=== PATIENT | female | born 1980 | race Caucasian/White ===

== ENCOUNTER → 2016-11-21 | Outpatient (CLI) | payer BC ==
[~2016-11-21] MED LIST: FERR1TAB36 PO; OXYC-360 PO; TAB-TAB PO; VITA10007 PO
== END ==
LOC: CPRE 09:26
PROVIDERS: ATTEND Obstetrics & Gynecology
DX: Z01.812 Encounter for preprocedural laboratory examination (principal); D21.9 Benign neoplasm of connective and other soft tissue, unspecified

== ENCOUNTER 2016-11-26 06:15 | Observation (INO) | payer BC ==
[~2016-11-26] VITALS: Ht 154.9 cm; Wt 50.4 kg
[~2016-11-26 06:15] MED LIST changes: -OXYC-360 PO; -TAB-TAB PO
[2016-11-26] MEDS ORDERED: INSULIN HUMAN REGULAR 1,000 UNITS/10 ML VIAL SQ PRN (06:45)
[2016-11-26] MEDS ORDERED: METOPROLOL TARTRATE 25 MG TAB PO PRN (06:45)
[2016-11-26] MEDS ORDERED: ceFAZolin 1,000 MG/NS 100 ML IV SCH ×2 (06:45)
[2016-11-26] MEDS ORDERED: ONDANSETRON HCL 4 MG/2 ML VIAL IV PUSH SCH (06:45)
[2016-11-26 06:55] VITALS: BP 114/76; PULSE 88; RESP 16; TEMP 96.7; O2SAT 100
[2016-11-26] MEDS ORDERED: MIDAZOLAM HCL 2 MG/2 ML VIAL IV SCH (07:00)
[2016-11-26] MEDS ORDERED: METHYLENE BLUE 10 MG/ML VIAL ONE (07:21)
[2016-11-26] MEDS ORDERED: VASOPRESSIN INJ 20 UNITS/ML VIAL ONE (07:22)
[2016-11-26] MEDS ORDERED: SODIUM CHLOR 0.9% 250 ML INJ 250 ML ONE (07:22)
[2016-11-26] MEDS ORDERED: HYDROmorphone HCL PF 2 MG/ML VIAL ONE (07:24)
[2016-11-26] MEDS ORDERED: MIDAZOLAM HCL 5 MG/5 ML VIAL ONE (07:24)
[2016-11-26] MEDS ORDERED: fentaNYL CITRATE 250 MCG/5 ML AMP ONE (07:24)
[2016-11-26] MEDS ORDERED: ACETAMINOPHEN 1000 MG/100 ML VIAL IV ONE (07:26)
[2016-11-26] MEDS ORDERED: FAMOTIDINE 20 MG/2 ML VIAL ONE (07:26)
[2016-11-26] MEDS ORDERED: APREPITANT 40 MG CAP ONE (07:32)
[2016-11-26] MEDS ORDERED: LACTATED RINGER'S 1000 ML IV SCH (08:00)
[2016-11-26] MEDS ORDERED: SODIUM CHLORID 0.9% 500 ML IV SCH (08:00)
[2016-11-26] MEDS ORDERED: PROPOFOL 200 MG/20 ML AMP IV ONE (09:32)
[2016-11-26] MEDS ORDERED: LACTATED RINGER'S 1000 ML INJ 3,000 ML IV ONE (09:32)
[2016-11-26] MEDS ORDERED: ONDANSETRON HCL 4 MG/2 ML VIAL IV PUSH ONE (09:32)
[2016-11-26] MEDS ORDERED: NEOSTIGMINE 3 MG/3 ML SYR IV ONE (09:32)
[2016-11-26] MEDS ORDERED: DO NOT ADM ANY ANTICOAGULANT DRUGS XX PRN (12:00)
[2016-11-26] MEDS ORDERED: *MEPERIDINE 25 MG INJ VIAL PERIprocedural Use ONLY ONE (12:00)
[2016-11-26] MEDS ORDERED: MORPHINE SULFATE 30 MG/30 ML PCA ONE (12:15)
[2016-11-26] MEDS ORDERED: ONDANSETRON HCL 4 MG/2 ML VIAL IV PUSH PRN (13:00)
[2016-11-26] MEDS ORDERED: oxyCODONE/ACETAMINOPHEN 5 MG/325 MG TAB PO PRN (13:00)
[2016-11-26] MEDS ORDERED: KETOROLAC TROMETHAMINE 30 MG/ML (IVP) VIAL IV PUSH ONE (13:00)
[2016-11-26] MEDS: DEXT 5%-NACL 0.45% 1000 ML INJ 1,000 ML IV SCH ×2 (13:00→20:35)
[2016-11-26 13:15] VITALS: BP 82/50; PULSE 77; RESP 18; TEMP 98.1; O2SAT 100
[2016-11-26] MEDS ORDERED: MORPHINE SULFATE 30 MG/30 ML PCA IV SCH (13:30)
[2016-11-26] MEDS ORDERED: NALOXONE HCL 0.4 MG/ML AMP IV PRN (13:30)
[2016-11-26 16:08] LABS: HEMATOCRIT 29.9 % (35.0-46.0)
[2016-11-26 16:09] LABS: REVIEW FLAG FINAL
[2016-11-26 17:16] VITALS: BP 98/55; PULSE 68; TEMP 98
[2016-11-26 18:35] VITALS: BP 97/59; PULSE 91
[2016-11-26 19:00] VITALS: BP 106/67; PULSE 89; RESP 18; TEMP 97.9; O2SAT 100
[2016-11-26] MEDS ORDERED: PROMETHAZINE INJ 25 MG/ML VIAL IM PRN (20:45)
[2016-11-26 21:42] LABS: HEMATOCRIT 27.8 % (35.0-46.0)
[2016-11-26 21:48] LABS: REVIEW FLAG FINAL
[2016-11-26] MEDS: PCA - TOTAL MG MORPHINE DELIVERED PER SHIFT SCH (22:00)
[2016-11-26] MEDS: oxyCODONE/ACETAMINOPHEN 5 MG/325 MG TAB PO PRN (23:35)
[2016-11-27] VITALS: BP 100/58; PULSE 97; RESP 18; TEMP 98.5; O2SAT 100
[2016-11-27] MEDS: oxyCODONE/ACETAMINOPHEN 5 MG/325 MG TAB PO PRN ×2 (01:46→05:48)
[2016-11-27] MEDS: DEXT 5%-NACL 0.45% 1000 ML INJ 1,000 ML IV SCH (04:40)
[2016-11-27 05:15] VITALS: BP 98/51; PULSE 84; RESP 17; TEMP 98.2; O2SAT 100
[2016-11-27] MEDS: PCA - TOTAL MG MORPHINE DELIVERED PER SHIFT SCH (05:20)
[2016-11-27 06:23] LABS: HEMATOCRIT 27.5 % (35.0-46.0)
[2016-11-27 06:43] LABS: REVIEW FLAG FINAL
[2016-11-27 08:00] VITALS: BP 102/56; PULSE 102; RESP 18; TEMP 99.2; O2SAT 98
[2016-11-27] MEDS ORDERED: NEOSTIGMINE 3 MG/3 ML SYR IV ONE (12:00)
--- NOTE | 2016-11-30 05:47 | MP ---
cc: GENARO JAIME DATE OF SURGERY 11/26/2016 PREOPERATIVE DIAGNOSIS Leiomyomata uteri, menorrhagia and anemia. POSTOPERATIVE DIAGNOSIS Leiomyomata uteri, menorrhagia and anemia. PROCEDURE Laparoscopic-assisted supracervical hysterectomy. SURGEON MD Elena ANESTHESIA General. ESTIMATED BLOOD LOSS 400 cc. COMPLICATIONS None. FINDINGS The patient had 12-14 weeks' size uterus with what appeared to be three to four large 5-8 cm size fibroids. The largest of these was in the posterior fundus. There was also one in the right broad ligament area. The cervix, tubes and ovaries were grossly unremarkable. The liver, gallbladder, stomach and small and large bowel were also grossly normal. DESCRIPTION OF PROCEDURE The patient was brought to the operating room and following general anesthesia was placed in dorsal lithotomy position. Her vagina, abdomen and perineum were prepped and draped. A HUMI catheter was placed in the uterus and a Duque catheter into the bladder. A 1-cm subumbilical skin incision was made. The Veress needle was inserted and 3 liters of CO2 was infused into the abdomen. The Veress needle was then removed the laparoscope was placed without difficulty. Second, third and fourth puncture sites were created under direct visualization. The findings were as noted above. We used the harmonic scalpel to clamp, cut and seal the upper broad ligaments and round ligaments on each side. The bladder peritoneum was then taken down sharply with the harmonic scalpel and the bladder was advanced off of the cervix. There was some scarring from her prior section in this area that was dealt with with sharp dissection. We then skeletonized the uterine vessels on each side. The right ureter was actually attached to the fibroid in the right broad ligament area so this required meticulous dissection to take off the ureter from the fibroid. After doing this week, we clamped, cut and sealed the uterine vessels on each side. We reinspected the bladder and the ureters to be sure they were well way from the upper cervix. We then placed the Lini Loop across the upper cervix and transected it. There was some extensive peritoneal and edge bleeding along both the cervical cuff and the peritoneal edges in the pelvis. These were cauterized multiple times, however, kept recurrently bleeding. We placed a gauze sponge against them to assist in hemostasis. We then morcellated the uterus and removed it. There was still oozing from multiple spots along the peritoneal edges and along the edge of the cervix and the cervical stump. We then cauterized these additional times. We placed Jennie and in these areas to see if that would help but she still continued to ooze and so a large piece of Surgicel was placed along the right side where the bleeding was the greatest. We placed pressure on this area and this seemed to control the bleeding quite well. We also gave her methylene blue while morcellating the uterus and no dye was noted within the pelvis and clear, slightly blue-tinged urine was obtained in the Duque eventually. With bleeding in good control at that point, all instruments were removed as were the 4x4 we had placed earlier. The CO2 gas was allowed to escape. The incisions were then closed subcuticular with #4-0 Vicryl stitch. The patient was then taken to the recovery room in good condition with all counts correct and clear urine draining in her Duque catheter. MD MALLIKA Luna/FRANDY /3:48 PM /5:35 AM
== END 2016-11-27 14:04 | disposition home or self-care (01) ==
LOC: HSDC 06:15 → HOCB 13:16
PROVIDERS: ADMIT Obstetrics & Gynecology; ATTEND Obstetrics & Gynecology
DX: D25.9 Leiomyoma of uterus, unspecified (principal); N92.0 Excessive and frequent menstruation with regular cycle; D64.9 Anemia, unspecified; N83.8 Other noninflammatory disorders of ovary, fallopian tube and broad ligament
CPT/HCPCS: 00840; 58544; 85014; 85018; 86850; 86900; 86901; 88307; G0378; J0131; J0690; J1170; J1885; J2175; J2250; J2270; J2405; J2550; J2710; J3010; J7120; J8501; J7050